=== PATIENT | female | born 1935 | race Caucasian/White ===

== ENCOUNTER 2024-10-02 01:20 | Inpatient (IN) | payer OTHER ==
[2024-10-02] MEDS ORDERED: morphine SULFATE 4 MG/ML VIAL ONE (02:14)
[2024-10-02] MEDS: morphine CARPU-JECT 4 MG/1 ML DISP.SYRIN IVPUSH ONE (02:40)
[2024-10-02 02:41] LABS: BASO % 0.5 % (0-2.0); EOS % 0.9 % (0-4.5); HEMATOCRIT 39.9 % (32.4-45.2); HEMOGLOBIN 12.9 GM/dL (10.7-15.3); MCH 29.9 pg (25.7-33.7); MCHC 32.4 g/dl (32.0-36.0); MEAN CELL VOLUME 92.1 fl (80-96); MONO % 7.1 % (3.8-10.2); NEUT % 79.5 % (42.8-82.8); PLATELET COUNT 277 10^3/uL (134-434); RBC 4.33 M/mm3 (3.60-5.2); RDW 13.5 % (11.6-15.6); WHITE BLOOD COUNT 9.4 K/mm3 (4.0-10.0)
[2024-10-02 02:45] LABS: PROTHROMBIN TIME (PATIENT) 11.5 SEC (9.7-13.0)
[2024-10-02 02:48] LABS: ACTIVATED PTT 32.3 SECONDS (25.2-36.5)
[2024-10-02 03:01] LABS: POTASSIUM 4.5 mmol/L (3.5-5.1)
[2024-10-02 03:04] LABS: ALBUMIN 4.3 g/dl (3.4-5.0); BLOOD UREA NITROGEN 9.2 mg/dL (7-18)
[2024-10-02 03:07] LABS: CREATININE 0.9 mg/dL (0.55-1.3)
[2024-10-02 03:09] LABS: BILIRUBIN,TOTAL 0.9 mg/dL (0.2-1); TOT PROT 7.6 g/dl (6.4-8.2)
[2024-10-02] MEDS ORDERED: MORPHINE SULFATE 2 MG/ML SYRINGE IVPUSH PRN ×3 (05:27→08:24)
[2024-10-02] MEDS ORDERED: ACETAMINOPHEN 1000 MG/100 ML BAG IVPB PRN (06:11)
[2024-10-02] MEDS: SODIUM CHLORIDE 1,000 ML IV SCH ×2 (06:25→17:52)
[2024-10-02] MEDS: ACETAMINOPHEN 1000 MG/100 ML BAG IVPB PRN (06:25)
[2024-10-02 07:45] LABS: BASO % 0.4 % (0-2.0); LYMPH % 4.9 % (8-40); MCHC 32.4 g/dl (32.0-36.0); MEAN CELL VOLUME 92.8 fl (80-96); MEAN PLT VOLUME 8.1 fl (7.5-11.1); MONO % 7.6 % (3.8-10.2); NEUT % 87.1 % (42.8-82.8); PLATELET COUNT 276 10^3/uL (134-434); RBC 3.98 M/mm3 (3.60-5.2); RDW 13.1 % (11.6-15.6); WHITE BLOOD COUNT 15.6 K/mm3 (4.0-10.0)
[2024-10-02] MEDS ORDERED: INSULIN ASPART SLIDING SCALE (NOVOLOG) 1 VIAL SQ ONE (07:45)
[2024-10-02] MEDS: INSULIN ASPART SLIDING SCALE (NOVOLOG) 1 VIAL SQ SCH ×2 (07:48→17:32)
[2024-10-02 08:04] LABS: POTASSIUM 4.2 mmol/L (3.5-5.1)
[2024-10-02 08:06] LABS: ALBUMIN 4.1 g/dl (3.4-5.0); BLOOD UREA NITROGEN 10.8 mg/dL (7-18); CALCIUM 9.6 mg/dL (8.5-10.1)
[2024-10-02 08:07] LABS: MAGNESIUM 1.6 mg/dL (1.8-2.4)
[2024-10-02 08:09] LABS: CREATININE 0.9 mg/dL (0.55-1.3)
[2024-10-02 08:10] LABS: PHOSPHOROUS 3.3 mg/dL (2.5-4.9)
[2024-10-02 08:11] LABS: BILIRUBIN,TOTAL 1.1 mg/dL (0.2-1)
[2024-10-02] MEDS: ACETAMINOPHEN 1000 MG/100 ML BAG IVPB SCH ×3 (11:46→22:54)
[2024-10-02] MEDS: PARoxetine HCL 10 MG TABLET PO SCH (11:47)
[2024-10-02] MEDS ORDERED: PROPOFOL 20 ML ONE (14:47)
[2024-10-02] MEDS: ceFAZolin SODIUM 1 GM VIAL IVPB ONE (15:00)
[2024-10-02] MEDS ORDERED: ONDANSETRON 4 MG/2 ML VIAL IVPUSH PRN (16:11)
[2024-10-02] MEDS: LACTATED RINGERS SOLUTION 1,000 ML IV SCH (18:04)
[2024-10-02] MEDS ORDERED: FAMOTIDINE 40 MG TABLET PO SCH (22:00)
[2024-10-02] MEDS ORDERED: ATORVASTATIN CA 20 MG TABLET (FP) PO SCH (22:00)
[2024-10-02] MEDS ORDERED: DONEPEZIL HCL 5 MG TABLET (FP) PO SCH (22:00)
[2024-10-02] MEDS: DONEPEZIL HCL 5 MG TABLET (FP) PO SCH (22:56)
[2024-10-02] MEDS: ATORVASTATIN CA 20 MG TABLET (FP) PO SCH (22:56)
[2024-10-02] MEDS: FAMOTIDINE 40 MG TABLET PO SCH (22:57)
[2024-10-03] MEDS: CEFAZOLIN 1 GM/D5W 1 GM/50 ML BAG IVPB SCH (01:24)
[2024-10-03] MEDS: MAGNESIUM 2GM/50ML STERILE WATER IVPB IVPB ONE (09:25)
[2024-10-03 09:57] LABS: HEMATOCRIT 24.7 % (32.4-45.2); HEMOGLOBIN 8.2 GM/dL (10.7-15.3); MCH 30.7 pg (25.7-33.7); MCHC 33.2 g/dl (32.0-36.0); MEAN CELL VOLUME 92.4 fl (80-96); MEAN PLT VOLUME 8.4 fl (7.5-11.1); PLATELET COUNT 225 10^3/uL (134-434); RBC 2.67 M/mm3 (3.60-5.2); RDW 13.9 % (11.6-15.6); WHITE BLOOD COUNT 12.9 K/mm3 (4.0-10.0)
[2024-10-03] MEDS: PARoxetine HCL 10 MG TABLET PO SCH (10:11)
[2024-10-03 10:19] LABS: POTASSIUM 4.6 mmol/L (3.5-5.1)
[2024-10-03 10:22] LABS: BLOOD UREA NITROGEN 18.5 mg/dL (7-18)
[2024-10-03 10:25] LABS: CALCIUM 8.5 mg/dL (8.5-10.1); CREATININE 1.2 mg/dL (0.55-1.3)
[2024-10-03 10:27] LABS: MAGNESIUM 1.6 mg/dL (1.8-2.4); PHOSPHOROUS 4.5 mg/dL (2.5-4.9)
[2024-10-03] MEDS: ENOXAPARIN NA (PORCINE) 40 MG/0.4 ML DISP.SYRIN SQ SCH (16:08)
[2024-10-03] MEDS ORDERED: FAMOTIDINE 20 MG TABLET PO SCH (22:34)
[2024-10-03 22:36] VITALS: RESP 18
[2024-10-03] MEDS: FAMOTIDINE 20 MG TABLET PO SCH (22:51)
[2024-10-04 10:18] LABS: POTASSIUM 4.3 mmol/L (3.5-5.1)
[2024-10-04 10:37] LABS: HEMATOCRIT 26.2 % (32.4-45.2); HEMOGLOBIN 8.6 GM/dL (10.7-15.3); MCH 30.5 pg (25.7-33.7); MCHC 32.9 g/dl (32.0-36.0); MEAN CELL VOLUME 92.7 fl (80-96); MEAN PLT VOLUME 8.8 fl (7.5-11.1); PLATELET COUNT 207 10^3/uL (134-434); RBC 2.83 M/mm3 (3.60-5.2); WHITE BLOOD COUNT 9.8 K/mm3 (4.0-10.0)
[2024-10-04 10:38] LABS: CALCIUM 8.4 mg/dL (8.5-10.1)
[2024-10-04 10:39] LABS: BLOOD UREA NITROGEN 18.9 mg/dL (7-18)
[2024-10-04] MEDS: VITAMINS A AND D TOPICAL OINTMENT TP SCH (17:25)
[2024-10-04] MEDS: ACETAMINOPHEN 325 MG TABLET (FP) PO SCH (20:24)
[2024-10-04] MEDS: oxyCODONE HCL 5 MG TABLET PO PRN (21:55)
[2024-10-05] MEDS: AMINO ACIDS/PROTEIN HYDROLYS 30 ML LIQUID.PKT PO SCH (08:14)
[2024-10-05] MEDS: MULTIVITAMINS (DAILY MVI) TABLET (FP) PO SCH (09:12)
[2024-10-05] MEDS: ASCORBIC ACID 500 MG TABLET (FP) PO SCH (09:12)
[2024-10-05 09:57] LABS: HEMATOCRIT 26.7 % (32.4-45.2); MCHC 33.7 g/dl (32.0-36.0); MEAN PLT VOLUME 8.5 fl (7.5-11.1); PLATELET COUNT 207 10^3/uL (134-434); RDW 13.6 % (11.6-15.6); WHITE BLOOD COUNT 8.5 K/mm3 (4.0-10.0)
[2024-10-05 10:42] LABS: MAGNESIUM 1.9 mg/dL (1.8-2.4)
[2024-10-06 09:16] LABS: HEMATOCRIT 26.9 % (32.4-45.2); HEMOGLOBIN 9.1 GM/dL (10.7-15.3); MCH 30.8 pg (25.7-33.7); MCHC 33.8 g/dl (32.0-36.0); MEAN CELL VOLUME 91.3 fl (80-96); MEAN PLT VOLUME 8.3 fl (7.5-11.1); PLATELET COUNT 238 10^3/uL (134-434); RBC 2.94 M/mm3 (3.60-5.2); RDW 13.4 % (11.6-15.6); WHITE BLOOD COUNT 7.7 K/mm3 (4.0-10.0)
[2024-10-07] MEDS: ENOXAPARIN NA (PORCINE) 40 MG/0.4 ML DISP.SYRIN SQ SCH (09:03)
[2024-10-07] MEDS: LISINOPRIL 10 MG TABLET PO SCH (09:03)
[2024-10-07] MEDS: CHOLECALCIFEROL (VIT D3 5000 UNITS) 125 MCG TAB PO SCH (09:07)
[2024-10-07] MEDS: metFORMIN HCL 500 MG TABLET (FP) PO SCH (16:28)
[2024-10-08] MEDS ORDERED: CHOLECALCIFEROL (VIT D3) 5000 UNITS (125 MCG) CAP PO SCH (10:36)
[2024-10-08] MEDS: CHOLECALCIFEROL (VIT D3) 5000 UNITS (125 MCG) CAP PO SCH (11:01)
[2024-10-08 12:31] VITALS: BMI 21.2
[2024-10-09 12:22] LABS: BASO % 0.7 % (0-2.0); EOS % 3.5 % (0-4.5); HEMATOCRIT 29.1 % (32.4-45.2); HEMOGLOBIN 9.6 GM/dL (10.7-15.3); LYMPH % 22.6 % (8-40); MCH 30.4 pg (25.7-33.7); MCHC 33.1 g/dl (32.0-36.0); MEAN CELL VOLUME 91.8 fl (80-96); MEAN PLT VOLUME 8.3 fl (7.5-11.1); MONO % 11.5 % (3.8-10.2); NEUT % 61.7 % (42.8-82.8); PLATELET COUNT 373 10^3/uL (134-434); RBC 3.17 M/mm3 (3.60-5.2); RDW 13.6 % (11.6-15.6); WHITE BLOOD COUNT 10.2 K/mm3 (4.0-10.0)
[2024-10-09 12:51] LABS: CALCIUM 9.1 mg/dL (8.5-10.1)
[2024-10-09 12:52] LABS: BLOOD UREA NITROGEN 26.9 mg/dL (7-18)
[2024-10-09 12:54] LABS: CREATININE 0.9 mg/dL (0.55-1.3)
[2024-10-09 12:56] LABS: BILIRUBIN,TOTAL 1.5 mg/dL (0.2-1); TOT PROT 6.2 g/dl (6.4-8.2)
[2024-10-10 09:05] VITALS: TEMP 97.7
[2024-10-10] MEDS: CHOLECALCIFEROL (VIT D3) 5000 UNITS (125 MCG) CAP PO SCH (10:16)
[2024-10-10] MEDS ORDERED: LACTATED RINGERS SOLUTION 1,000 ML/1,000 ML INFUS.BAG IV SCH (14:15)
[2024-10-10] MEDS: LACTATED RINGERS SOLUTION 1,000 ML/1,000 ML INFUS.BAG IV STA (14:54)
[2024-10-10] MEDS: LISINOPRIL 10 MG TABLET PO ONE (16:41)
[2024-10-10 16:57] VITALS: BP 172/54; PULSE 79
== END 2024-10-10 16:50 | DRG 481 ==
LOC: JER 01:20 → JERBED 05:47 → J7W 09:20 → OBSVTOIN 14:42 → J6S 17:21
PROVIDERS: ADMIT Internal Medicine; ATTEND Internal Medicine
PROC: 0QS706Z Reposition Left Upper Femur with Intramedullary Internal Fixation Device, Open Approach (ICD-10-PCS; principal; 2024-10-02 14:00)
DX: S72.142A Displaced intertrochanteric fracture of left femur, initial encounter for closed fracture (principal); D62 Acute posthemorrhagic anemia; F32.A Depression, unspecified; E83.42 Hypomagnesemia; R13.10 Dysphagia, unspecified; I10 Essential (primary) hypertension; R55 Syncope and collapse; W19.XXXA Unspecified fall, initial encounter; Y93.89 Activity, other specified; Y92.89 Other specified places as the place of occurrence of the external cause; Y99.8 Other external cause status; E11.9 Type 2 diabetes mellitus without complications; F03.90 Unspecified dementia, unspecified severity, without behavioral disturbance, psychotic disturbance, mood disturbance, and anxiety
CPT/HCPCS: 36415; 70450-TC; 71045-TC-FY; 72125-TC; 72170-TC-FY; 73502-TC-LT-FY; 76000-TC-FY; 80048; 80053; 82962; 83735; 84100; 84484; 85025; 85027; 85610; 85730; 86850; 86900; 86901; 87635; 93005; 93010; 93306-TC; 94760; 97116-GP; 97162-GP; 99285-25; C1713; G0378; J0131

== ENCOUNTER 2024-10-23 09:14 | Observation (INO) | payer OTHER ==
[2024-10-23 09:20] VITALS: BMI 23.0
[2024-10-23 10:40] LABS: HEMATOCRIT 32.7 % (32.4-45.2); HEMOGLOBIN 10.8 G/dL (10.7-15.3); INR 1.08 (0.83-1.09); MCH 30.9 pg (25.7-33.7); MCHC 33.1 g/dl (32.0-36.0); MEAN CELL VOLUME 93.4 fl (80-96); MEAN PLT VOLUME 8.7 fl (7.5-11.1); PLATELET COUNT 312.2 10^3/uL (134-434); PROTHROMBIN TIME (PATIENT) 12.3 SEC (9.7-13.0); RDW 13.9 % (11.6-15.6); WHITE BLOOD COUNT 10.7 10^3/uL (4.0-10.8)
[2024-10-23 10:43] LABS: ACTIVATED PTT 31.7 SECONDS (25.2-36.5)
[2024-10-23 11:15] LABS: BILIRUBIN,TOTAL 1.1 mg/dl (0.2-1); CALCIUM 9.2 mg/dl (8.5-10.1); CREATININE 0.9 mg/dl (0.6-1.3); POTASSIUM 4.3 mmol/L (3.5-5.1); TOT PROT 6.9 g/dl (6.4-8.2)
[2024-10-23] MEDS ORDERED: ARTIFICIAL TEARS OPHTHALMIC DROPS OU PRN (14:06)
[2024-10-23] MEDS: INSULIN ASPART SLIDING SCALE (NOVOLOG) 1 VIAL SQ SCH (16:45)
[2024-10-23] MEDS: DONEPEZIL HCL 10 MG TABLET (FP) PO SCH (22:25)
[2024-10-23] MEDS: ATORVASTATIN CA 10 MG TABLET (FP) PO SCH (22:25)
[2024-10-24 09:01] LABS: ALBUMIN 3.9 g/dl (3.4-5.0); CREATININE 0.8 mg/dl (0.6-1.3); MAGNESIUM 1.9 mg/dL (1.8-2.4); PHOSPHOROUS 3.3 (2.5-4.9); POTASSIUM 4.1 mmol/L (3.5-5.1); TOT PROT 6.5 g/dl (6.4-8.2)
[2024-10-24 09:39] LABS: BASO % 0.3 % (0-2.0); EOS % 4.7 % (0-4.5); HEMATOCRIT 30.7 % (32.4-45.2); HEMOGLOBIN 10.1 GM/dL (10.7-15.3); LYMPH % 20.7 % (8-40); MCH 30.5 pg (25.7-33.7); MCHC 32.9 g/dl (32.0-36.0); MEAN CELL VOLUME 92.7 fl (80-96); MEAN PLT VOLUME 8.4 fl (7.5-11.1); MONO % 8.4 % (3.8-10.2); NEUT % 65.9 % (42.8-82.8); PLATELET COUNT 321 10^3/uL (134-434); RBC 3.31 M/mm3 (3.60-5.2); RDW 13.7 % (11.6-15.6); WHITE BLOOD COUNT 8.5 K/mm3 (4.0-10.0)
[2024-10-24] MEDS: AMINO ACIDS/PROTEIN HYDROLYS 30 ML LIQUID.PKT PO SCH (10:54)
[2024-10-24] MEDS: LISINOPRIL 10 MG TABLET PO SCH (10:54)
[2024-10-24] MEDS: POLYETHYLENE GLYCOL (HEALTHYLAX) 3350 17 GM PACKET PO SCH (10:54)
[2024-10-24] MEDS: PARoxetine HCL 20 MG TABLET PO SCH (10:54)
[2024-10-24] MEDS: ENOXAPARIN NA (PORCINE) 40 MG/0.4 ML DISP.SYRIN SQ SCH (10:54)
[2024-10-24] MEDS: CYANOCOBALAMIN 1,000 MCG TABLET (FP) PO SCH (10:54)
[2024-10-24] MEDS: FAMOTIDINE 20 MG TABLET PO SCH (10:54)
[2024-10-24] MEDS: ASCORBIC ACID 500 MG TABLET (FP) PO SCH (10:54)
[2024-10-24] MEDS: FERROUS SO4 325 MG TABLET (FP) PO SCH (10:55)
[2024-10-24] MEDS: EMPAGLIFLOZIN (JARDIANCE) 10 MG TABLET PO SCH (10:57)
[2024-10-24] MEDS: AMMONIUM LACTATE 12% LOTION 225 GM BOTTLE TP SCH (10:58)
[2024-10-24 12:52] VITALS: BP 143/63; PULSE 86; RESP 18; TEMP 98
== END 2024-10-24 16:39 ==
LOC: FER 09:14 → INTOOBSV 12:44 → UNDOADMOB 12:44 → FM/S 12:44
PROVIDERS: ADMIT Internal Medicine; ATTEND Student in an Organized Health Care Education/Training Program
PROC: 3E033VG Introduction of Insulin into Peripheral Vein, Percutaneous Approach (ICD-10-PCS; principal; 2024-10-23)
PROC: 3E033GC Introduction of Other Therapeutic Substance into Peripheral Vein, Percutaneous Approach (ICD-10-PCS; 2024-10-23)
DX: U07.1 COVID-19 (principal); I11.0 Hypertensive heart disease with heart failure; I50.9 Heart failure, unspecified; E11.9 Type 2 diabetes mellitus without complications; E78.5 Hyperlipidemia, unspecified; Z79.84 Long term (current) use of oral hypoglycemic drugs
CPT/HCPCS: 0241U-QW; 36415; 70450-TC; 71045-TC-FY; 73502-TC-LT-FY; 80053; 81003; 82962; 83735; 84100; 84484; 85025; 85610; 85730; 87086; 93005; 96372; 97116-GP; 97162-GP; 99285-25; G0378